=== PATIENT | female | born 1945 | race Caucasian/White ===

== ENCOUNTER 2016-09-16 10:50 | Day surgery (SDC) | payer MEDICARE, BC ==
[2016-09-14 16:20] VITALS: BMI 28.7
[~2016-09-16 10:50] MED LIST: ACETAMINOPHEN TAB 500 MG TAB PO ONE; DEXAMETHASONE SOD PHOSPHATE 10 MG/ML 1 ML VIAL IV ONE; LACTATED RINGERS 1,000 ML IV SCH; MELOXICAM 7.5 MG TAB PO ONE; MIDAZOLAM 2 MG/2 ML VIAL IV PRN; ONDANSETRON 4 MG/2 ML VIAL IVP ONE; SCOPOLAMINE 1.5MG/72HR PATCH TRANSDERM ONE; ceFAZolin 2 GM in SODIUM CHLORIDE 0.9% 100 ML IVPB ONE
[2016-09-16] MEDS ORDERED: LIDOCAINE 1% 20 ML VIAL (10MG/ML) FOR IV START INTRADERMA ONE (12:30)
[2016-09-16] MEDS ORDERED: LIDOCAINE 2%-EPI 1:100,000 20 ML VIAL ONE (13:37)
[2016-09-16] MEDS ORDERED: fentaNYL (PF) 50 MCG/ML 2 ML AMP ONE (13:37)
[2016-09-16] MEDS ORDERED: ROPIVACAINE 5 MG/ML 30 ML VIAL ONE (13:37)
[2016-09-16] MEDS ORDERED: LIDOCAINE 1% INJ 10MG/ML (20 ML MDV) ONE (13:37)
[2016-09-16] MEDS ORDERED: ePHEDrine 50 MG/ML 1 ML AMP ONE (13:37)
[2016-09-16] MEDS ORDERED: PROPOFOL 10 MG/ML 20 ML VIAL IV ONE (13:37)
[2016-09-16] MEDS ORDERED: SUCCINYLCHOLINE CHLORIDE 100 MG/5 ML SYR IV ONE (13:37)
[2016-09-16] MEDS ORDERED: ceFAZolin 1,000 MG in SODIUM CHLORIDE 0.9% 1,000 ML IRRIGATION ONE (14:56)
[2016-09-16 15:24] VITALS: TEMP 97.6
--- NOTE | 2016-09-16 15:24 | P.OP ---
Date of Procedure: 09/16/16 Procedure(s) Performed: PREOPERATIVE DIAGNOSES: 1. Left shoulder subscapularis tear POSTOPERATIVE DIAGNOSES: 1. Left shoulder subscapularis tear 2. Osteoarthritis glenohumeral joint, grade 3 to 4 PROCEDURES PERFORMED: 1. Left shoulder open subscapularis repair ANESTHESIA: Gen. ASSISTANT WOMENS VOLLEYBALL COACH: Kimberly Farley PA-C (assistance with exposure, hemostasis, retraction, fixation, closure, dressing, splint) COMPLICATIONS: None ESTIMATED BLOOD LOSS: 30 mL. DISPOSITION: To post-anesthesia care unit INDICATIONS: Mrs. Zheng is a 71-year-old female who sustained a subscapularis tear approximately 2 weeks ago during a fall. The patient, after counseling on both conservative and surgical options, chooses to proceed with open subscapularis repair. I have discussed this surgery in detail, as well as the potential risks and complications including, but not limited to: Bleeding, infection, scarring, discomfort, blood vessel and/or nerve damage, need for further surgery, stiffness, rerupture, persistence or worsening of problems, blood clot, pulmonary embolism, anesthesia risks, , loss of use of the extremity, and other risks. Patient is aware these risks and wishes to proceed with surgery. The consent form has been signed. PROCEDURE: After appropriate consent was obtained, the patient was taken to the operating room placed in the supine position. Anesthesia was initiated, and after confirmation of adequate anesthesia, the patient was carefully positioned. Care was taken to make sure that all pressure points were adequately padded. Patient was placed into the beachchair position with approximately 30 of elevation of the head of the bed. Head was secured with Coban. Prepping and draping were completed in the usual aseptic fashion using ChloraPrep. Timeout was called, confirming patient identity, side, procedure, and administration of antibiotics. Deltopectoral incision was created from just at the coracoid process down to near the deltoid insertion for total length of approximately 4.5 inches. Incision was deepened down through skin into subcu tissues and down to muscular fascia. Meticulous hemostasis was accomplished using cautery. Muscular fascia was encountered of the deltoid and this was followed medially until the deltopectoral interval was located. Deltopectoral interval was exposed and the vein was carefully retracted medially along with the pectoralis. Deltoid was mobilized on its deep surface using finger dissection and the area just adjacent to the strap muscles was incised for exposure of the subscapularis tendon. The subscapularis tendon had completely detached from its bony insertion just medial to the bicipital groove. The biceps tendon was located and noted to be completely anatomically oriented and was left undisturbed for the entire case. The subscapularis tendon was tagged with 2 #2 Ethibond sutures for control of the tendon. The supraspinatus and infraspinatus tendons were noted to be completely intact and normal. The area just lateral to the articular surface at the subscapularis footprint was prepared by removing organizing soft tissue in this region down to bone and noting that the bone quality was somewhat poor in this individual. The area was very lightly debrided to encourage a healing response once the tendon had been repaired. The subscapularis tendon was able to be easily mobilized to an anatomic location. 2 double loaded 5.5 mm Bio- Corkscrew suture anchors were deployed into the subscapularis footprint with care to place these anchors in as good bone as possible. Once the anchors were placed, the sutures were then brought through the subscapularis tendon in appropriate locations. A combination of horizontal mattress as well as modified Odilon-Grant sutures were placed. Tension was held on the tag sutures while the anchor sutures were tied down securely. Further reinforcement of the repair was performed using 0 Vicryl sutures in the medial aspect of the soft tissue just adjacent to the bicipital groove. The shoulder was then taken through range of motion gently observing the repair and noting that the repair was very stable. Thorough irrigation was performed using normal saline; hemostasis was obtained using electrocautery. Closure was performed of the deltopectoral interval with loose 0 Vicryl sutures to lightly appose the muscles. 2 layer subcu cutaneous closure was performed followed by skin closure with 3-0 Monocryl suture and cyanoacrylate top dressing. Final sterile dressing was applied and held into position. Sling was then applied. Patient tolerated the procedure well and taken to recovery room in stable condition. Sponge and needle counts were correct.
[2016-09-16] MEDS: HYDROmorphone 1 MG/ML 1 ML SYRINGE IVP PRN ×2 (15:29→15:50)
[2016-09-16 16:31] VITALS: BP 156/87; PULSE 69; RESP 16
== END 2016-09-16 18:17 | disposition home or self-care (01) ==
LOC: OR 10:50
PROVIDERS: ATTEND Orthopaedic Surgery
DX: S46.012A Strain of muscle(s) and tendon(s) of the rotator cuff of left shoulder, initial encounter (principal); W06.XXXA Fall from bed, initial encounter; I10 Essential (primary) hypertension; Z87.891 Personal history of nicotine dependence; Z79.891 Long term (current) use of opiate analgesic; Z79.899 Other long term (current) drug therapy
CPT/HCPCS: 64415; 20999; C1713; J2250; J1100; J2405; J0690; J2001; J3010; J1170; J2795; J0330; J2704

== ENCOUNTER → 2018-12-26 | Outpatient (CLI) | payer MEDICARE, BC ==
[2018-12-26 15:51] LABS: HCT 42.8 % (34.0-46.0); HGB 14.1 gm/dL (11.4-16.0); MCH 31.2 pg (25.0-35.0); MCV 94.6 fL (80.0-100.0); Mean Platelet Volume 6.9; Platelet Count 266 k/uL (150-450); RBC 4.53 m/uL (3.80-5.40); RDW 12.8 % (11.5-15.5); WBC 7.9 k/uL (3.8-10.6)
[2018-12-26 17:10] LABS: Appearance,BF Hazy; Color,BF Yellow; Nucleated Cells, Body Fluid 29 /uL; RBC, Body Fluid 15 /uL
[2018-12-26 17:19] LABS: Mononuclear WBC,Body Fluid 100 %; Total Cells Counted,Body Fluid 20
[2018-12-26 22:27] LABS: Erythrocyte Sedimentation Rate 8 mm/hr (0-20)
[2018-12-27 00:41] LABS: Rheumatoid Factor 10 IU/mL (0-15)
[2018-12-27 00:42] LABS: Streptolysin O Ab(ASO) 65 IU/mL (0-200)
[2018-12-27 01:30] LABS: C Reactive Protein <0.4 mg/dL (0.0-0.8)
[2018-12-27 12:48] LABS: HLA B27 NEGATIVE
[2018-12-28 12:00] LABS: Lyme IgG/IgM 0.08 Index; Lyme IgG/IgM Interp NEGATIVE (NEGATIVE)
== END | disposition home or self-care (01) ==
LOC: LABWHC1 15:04
PROVIDERS: ATTEND Orthopaedic Surgery
DX: M25.571 Pain in right ankle and joints of right foot (principal); M19.071 Primary osteoarthritis, right ankle and foot; M25.471 Effusion, right ankle
CPT/HCPCS: 36415; 84443; 85027; 85652; 86038; 86060; 86140; 86431; 86618; 86812; 89050; 89060

== ENCOUNTER 2021-04-16 15:31 | Emergency (ER) | payer MEDICARE, BC ==
[2021-04-16] MEDS ORDERED: CASIRIVIMAB (REGN10933) (EUA) 600 MG, IMDEVIMAB (REGN10987) (EUA) 600 MG in SODIUM CHLO... IVPB ONE (17:30)
--- NOTE | 2021-04-16 17:51 | ED ---
General Adult HPI - General Chief complaint: Upper Respiratory Infection Stated complaint: Covid+/antibodies Time Seen by Provider: 04/16/21 16:49 Source: patient Mode of arrival: ambulatory Limitations: no limitations - History of Present Illness Initial comments: 76-year-old female patient presents to the emergency department today for evaluation of dry cough for the last 3 days. States she was exposed to a friend who tested positive for COVID. Denies any fever or chills. Denies nausea or vomiting. Denies loss of taste or smell. States she was vaccinated with last dose in July. 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 She denies any shortness of breath or chest pain. Denies nausea, vomiting, or diarrhea. Patient denies any recent rash, abdominal pain, constipation, back pain, numbness, tingling, dizziness, weakness, hematuria, dysuria, urinary urgency, urinary frequency, headache, visual changes, or any other complaints. - Related Data Home Medications Medication Instructions Recorded Confirmed Acetaminophen [Tylenol Arthritis] 1,300 mg PO ONCE PRN 04/16/21 04/16/21 Atenolol [Tenormin] 50 mg PO DAILY 04/16/21 04/16/21 Diphenhydra/Phenyleph/Acetamin 1 pack PO ONCE PRN 04/16/21 04/16/21 [Theraflu Nt Severe Cld-Cgh Pkt] Allergies Allergy/AdvReac Type Severity Reaction Status Date / Time No Known Allergies Allergy Verified 04/16/21 18:03 Review of Systems ROS Statement: Those systems with pertinent positive or pertinent negative responses have been documented in the HPI. ROS Other: All systems not noted in ROS Statement are negative. Past Medical History Past Medical History: Cancer, Hypertension Additional Past Medical History / Comment(s): hx breast ca, radiation, left arm in sling History of Any Multi-Drug Resistant Organisms: None Reported Past Surgical History: Breast Surgery, Hysterectomy, Joint Replacement, Ort hopedic Surgery Additional Past Surgical History / Comment(s): rt knee replacement, left lumpectomy, upper eyelid lift, holli hands cyst removed Past Anesthesia/Blood Transfusion Reactions: No Reported Reaction Past Psychological History: No Psychological Hx Reported Smoking Status: Former smoker Past Alcohol Use History: Occasional Past Drug Use History: None Reported - Past Family History Sister(s) Family Medical History: Cancer Additional Family Medical History / Comment(s): breast Son(s) Family Medical History: Cancer Additional Family Medical History / Comment(s): prostate General Exam Limitations: no limitations General appearance: alert, in no apparent distress, other (This is a well- developed, well-nourished elderly female patient in no acute distress.) ENT exam: Present: normal exam, normal oropharynx, mucous membranes moist Respiratory exam: Present: normal lung sounds bilaterally. Absent: respiratory distress, wheezes, rales, rhonchi, stridor Cardiovascular Exam: Present: regular rate, normal rhythm, normal heart sounds. Absent: systolic murmur, diastolic murmur, rubs, gallop, clicks GI/Abdominal exam: Present: soft, normal bowel sounds. Absent: distended, tenderness, guarding, rebound, rigid Neurological exam: Present: alert, oriented X3, CN II-XII intact Psychiatric exam: Present: normal affect, normal mood Skin exam: Present: warm, dry, intact, normal color. Absent: rash Course Vital Signs 04/16/21 04/16/21 04/16/21 16:39 17:00 17:15 Temperature 98.5 F 98.3 F Pulse Rate 69 Pulse Rate [ 59 L 59 L Pulse Oximetery ] Respiratory 20 16 16 Rate Blood Pressure 116/80 Blood Pressure 205/90 194/76 [Right Arm] O2 Sat by Pulse 96 99 99 Oximetry 04/16/21 04/16/21 18:20 19:12 Temperature Pulse Rate Pulse Rate [ 60 66 Pulse Oximetery ] Respiratory 18 18 Rate Blood Pressure Blood Pressure 188/81 171/83 [Right Arm] O2 Sat by Pulse 99 97 Oximetry Medical Decision Making - Medical Decision Making 76-year-old female patient presented for evaluation of dry cough for the last 2 days. She did have positive outpatient COVID-19 test. Copy was placed on the chart. She did receive monoclonal antibody infusion tolerated it well. She'll be discharged follow up with her primary care physician for recheck in 1-2 days. Return parameters were discussed in detail. She verbalizes understanding and agrees with this plan. My attending is Dr. Cervantes. Disposition Clinical Impression: COVID-19 Disposition: HOME SELF-CARE Condition: Good Instructions (If sedation given, give patient instructions): Coronavirus Disease 2019 (COVID-19) Additional Instructions: Tips to help you feel better: -Maintain adequate fluid intake - especially water. -Rest, you are healing your body will require extra sleep. -Eat even if you do not feel like it - broth, jello, toast are fine if you cannot eat full meals. -Take tylenol and motrin alternating (if you have no allergies or have not been instructed to avoid these medications) to help with body aches and fevers. -Obtain over the counter vitamin C, zinc, and vitamin D3. -Take medications as prescribed. Follow-up with your primary care physician for recheck in 1-2 days. Return for any new, worsening, or concerning symptoms. Is patient prescribed a controlled substance at d/c from ED?: No Referrals: Kavitha Guajardo MD [Primary Care Provider] - 1-2 days
[2021-04-16] MEDS ORDERED: SODIUM CHLORIDE 0.9% 50 ML IVPB ONE (18:00)
[2021-04-16 18:03] VITALS: TEMP 98.3
[2021-04-16 18:58] VITALS: RESP 18
[2021-04-16 19:12] VITALS: BP 171/83; PULSE 66
== END 2021-04-16 17:30 | disposition home or self-care (01) ==
LOC: EC 15:31
DX: U07.1 COVID-19 (principal); I10 Essential (primary) hypertension; Z85.3 Personal history of malignant neoplasm of breast; Z90.710 Acquired absence of both cervix and uterus; Z96.651 Presence of right artificial knee joint; Z87.891 Personal history of nicotine dependence
CPT/HCPCS: 99283; Q0244

== ENCOUNTER → 2022-08-24 | Outpatient (CLI) | payer MEDICARE, BC ==
--- NOTE | 2022-08-24 12:17 | BD ---
EXAMINATION TYPE: Axial Bone Density DATE OF EXAM: 08/24/2022 CLINICAL HISTORY: 77 years old Female. ICD-10 CODE: Z78.0 MENOPAUSAL STATE Height: 5 ft 4 in Weight: 181 FRAX RISK QUESTIONS: Alcohol (3 or more units per day): no Family History (Parent hip fracture): no Glucocorticoids (More than 3mos): no (Ex: prednisone, prednisolone, methylprednisolone, dexamethasone, and hydrocortisone). History of Fracture in Adulthood: yes Secondary Osteoporosis: 1. Type 1 Diabetes: no 2. Hyperthyroidism: no 3. Menopause before 45: no 4. Malnutrition: no 5. Chronic liver disease: no Rheumatoid Arthritis: no Current Tobacco Use: no RISK FACTORS HISTORY OF: Surgery to Spine/Hip(right/left)/Wrist (right/left): no Family History of Osteoporosis: no Active: yes Diet low in dairy products/other sources of calcium: no Postmenopausal woman: yes Take estrogen and/or progesterone medications: none now Lost more than 2 inches in height since high school: yes Frequent falls: no Poor Health: good Hyperparathyroidism: no Adrenal Insufficiency: no MEDICATIONS: Additional Medications: atenolol, muscle relaxer as needed, Additional History: EXAM MEASUREMENTS: Bone mineral densitometry was performed using the [employer] System. Bone mineral density as measured about the Lumbar spine is: ----- L1-L4(G/cm2): 1.555 T Score Values are as follows: ----- L1: 2.8 ----- L2: 3.2 ----- L3: 3.0 ----- L4: 3.3 ----- L1-L4: 3.1 Z Score Values are as follows: ----- L1: 4.0 ----- L2: 4.4 ----- L3: 4.2 ----- L4: 4.5 ----- L1-L4: 4.3 baseline Bone mineral density about the R hip (g/cm2): 1.110 Bone mineral density about the L hip (g/cm2): 1.186 T Score values are as follows: -----R Neck: 0.5 -----L Neck: 1.1 -----R Total: 0.7 -----L Total: 1.2 Z Score values are as follows: -----R Neck: 2.1 -----L Neck: 2.6 -----R Total: 2.1 -----L Total: 2.6 baseline FRAX%s: The graph provided illustrates a 10.1% chance for a major osteoporotic fx and a 0.6% chance f or the hips probability for fx in 10 years time. IMPRESSION: Normal (Values between +1 and -1 indicate normal bone mass). Consider repeating this study in 5 year s or sooner if there is some new clinical indication. NOTE: T-SCORE=SD OF THE YOUNG ADULT MEAN.
--- NOTE | 2022-08-29 08:10 | MM ---
Reason for Exam: Screening (asymptomatic). Last mammogram was performed 1 year(s) and 5 month(s) ago. Patient History: Menarche at age 13. First Full-Term at age 20. Left ovary removed at age 52. Right ovary removed at age 52. Hysterectomy at age 52. Breast cancer, left, age 64. 2010, Lumpectomy on the Left side. 2010, Radiation Therapy on the left side. Sister had breast cancer, age 40. Prior Study Comparison: 07/02/2018 Bilateral Screening Mammogram, [facility]. 03/24/2021 Bilateral Screening Mammogram, [facility]. Tissue Density: There are scattered fibroglandular densities. Findings: Analyzed By CAD. Diminished size of the left breast with distortion along with surgical clips and dystrophic calcifications in the upper outer aspect posteriorly are redemonstrated consistent with posttreatment change. Occasional tiny benign-appearing round calcification bilaterally is redemonstrated. Benign-appearing right axillary lymph nodes are again seen. There is no suspicious new group of microcalcifications or new suspicious mass in either breast. Overall Assessment: Benign, BI-RAD 2 Management: Screening Mammogram of both breasts in 1 year. A clinical breast exam by your physician is recommended on an annual basis and results should be correlated with mammographic findings. Electronically signed and approved by: Stewart Schmidt M.D.
== END | disposition home or self-care (01) ==
LOC: RADMAMWWP 09:49
PROVIDERS: ATTEND Family Medicine
DX: Z12.31 Encounter for screening mammogram for malignant neoplasm of breast (principal); Z80.3 Family history of malignant neoplasm of breast; Z78.0 Asymptomatic menopausal state
CPT/HCPCS: 77063; 77067; 77080

== ENCOUNTER → 2023-06-13 | Outpatient (CLI) | payer MEDICARE, BC ==
[2023-06-13 15:04] LABS: INR 0.8 (<1.2); Partial Thromboplastin Time 22.7 sec (22.0-30.0); Prothrombin Time 9.5 sec (10.0-12.5)
[2023-06-13 18:58] LABS: ALT 11 U/L (8-44); AST 16 U/L (13-35); Albumin 3.9 g/dL (3.8-4.9); Albumin/Globulin Ratio 1.56 Ratio (1.60-3.17); Alkaline Phosphatase 101 U/L (41-126); BUN/Creat Ratio 20.43 Ratio (12.00-20.00); Blood Urea Nitrogen 14.3 mg/dL (9.0-27.0); Calcium 9.9 mg/dL (8.7-10.3); Carbon Dioxide 27.4 mmol/L (21.6-31.8); Chloride 98 mmol/L (96-109); Globulin 2.5 g/dL (1.6-3.3); Glucose 100 mg/dL (70-110); Potassium 4.4 mmol/L (3.5-5.5); Sodium 137 mmol/L (135-145); Total Bilirubin 0.4 mg/dL (0.3-1.2); Total Protein 6.4 g/dL (6.2-8.2)
[2023-06-13 19:24] LABS: HCT 41.9 % (37.2-46.3); HGB 13.7 g/dL (12.0-15.0); MCH 31.5 pg (27.0-32.0); MCHC 32.7 g/dL (32.0-37.0); MCV 96.3 FL (80.0-97.0); Mean Platelet Volume 10.7 FL (9.5-12.2); NRBC Per 100 WBC 0 X 10*3/uL (0.00-0.01); Platelet Count 232 X 10*3/uL (140-440); RBC 4.35 X 10*6/uL (4.10-5.20); RDW 12.2 % (11.5-14.5); WBC 9.67 X 10*3/uL (4.50-10.00)
== END | disposition home or self-care (01) ==
LOC: LABPAT 13:51
PROVIDERS: ATTEND Orthopaedic Surgery
DX: Z01.812 Encounter for preprocedural laboratory examination (principal); Z22.322 Carrier or suspected carrier of Methicillin resistant Staphylococcus aureus; E11.9 Type 2 diabetes mellitus without complications; M17.11 Unilateral primary osteoarthritis, right knee
CPT/HCPCS: 80053; 83036; 85027; 85610; 85730; 86850; 86900; 86901; 87070; 93005

== ENCOUNTER 2023-06-23 05:37 | Day surgery (SDC) | payer MEDICARE, BC ==
[2023-06-21 14:18] VITALS: BMI 27.8
[2023-06-23] MEDS ORDERED: LIDOCAINE 1% (10MG/ML) FOR IV START INTRADERMA PRN (05:42)
[2023-06-23] MEDS: LACTATED RINGERS 1,000 ML IV SCH (05:52)
[2023-06-23] MEDS: oxyCODONE ER 10 MG TAB.ER.12H PO PRN (05:53)
[2023-06-23] MEDS: ACETAMINOPHEN TAB 500 MG TAB PO PRN (05:53)
[2023-06-23] MEDS: KETOROLAC 15 MG/ML 1 ML VIAL IVP PRN (05:53)
[2023-06-23] MEDS: DEXAMETHASONE SOD PHOSPHATE 10 MG/ML 1 ML VIAL IV PRN (05:53)
[2023-06-23] MEDS: FAMOTIDINE 20 MG/2 ML VIAL IVP PRN (05:53)
[2023-06-23] MEDS: DOCUSATE 100 MG CAP PO PRN (05:53)
[2023-06-23] MEDS: ONDANSETRON 4 MG/2 ML VIAL IVP PRN (05:53)
[2023-06-23] MEDS ORDERED: TRANEXAMIC 1,000 MG/100ML-NACL 1,000 MG in SALINE 1 100ML.BAG IVPB PRN (06:00)
[2023-06-23] MEDS ORDERED: TRANEXAMIC 1,000 MG/100ML-NACL 1,000 MG in SALINE 1 100ML.BAG IV PRN (06:00)
[2023-06-23] MEDS: MIDAZOLAM 2 MG/2 ML VIAL IVP ONE (06:41)
[2023-06-23] MEDS ORDERED: METOCLOPRAMIDE 5 MG/ML 2 ML VIAL IVP PRN (07:00)
[2023-06-23] MEDS ORDERED: MIDAZOLAM 2 MG/2 ML VIAL IV PRN (07:00)
[2023-06-23] MEDS ORDERED: fentaNYL (PF) 50 MCG/ML 2 ML AMP IVP PRN (07:00)
[2023-06-23] MEDS ORDERED: SUCCINYLCHOLINE CHLORIDE 200 MG/10 ML VIAL IV ONE (07:03)
[2023-06-23] MEDS ORDERED: ePHEDrine 50 MG/ML 1 ML VIAL ONE (07:03)
[2023-06-23] MEDS ORDERED: fentaNYL (PF) 50 MCG/ML 2 ML AMP ONE (07:03)
[2023-06-23] MEDS ORDERED: NEOSTIGMINE 1 MG/ML 10 ML VIAL ONE (07:03)
[2023-06-23] MEDS ORDERED: LIDOCAINE 1% INJ 10MG/ML (20 ML MDV) ONE (07:03)
[2023-06-23] MEDS ORDERED: TRANEXAMIC 1,000 MG/100ML-NACL PREMIX BAG ONE (07:03)
[2023-06-23] MEDS ORDERED: ROPIVACAINE 5 MG/ML 30 ML VIAL ONE (07:03)
[2023-06-23] MEDS ORDERED: GLYCOPYRROLATE 0.2 MG/ML 2 ML VIAL ONE (07:03)
[2023-06-23] MEDS ORDERED: KETAMINE HCL IN 0.9 % NACL 50 MG/5 ML SYRINGE ONE (07:03)
[2023-06-23] MEDS ORDERED: MIDAZOLAM 2 MG/2 ML VIAL ONE (07:03)
[2023-06-23] MEDS ORDERED: PROPOFOL 10 MG/ML 20 ML VIAL IV ONE (07:03)
[2023-06-23] MEDS ORDERED: DEXAMETHASONE SOD PHOSPHATE 4 MG/ML 1 ML VIAL ONE (07:03)
[2023-06-23] MEDS ORDERED: ROCURONIUM 10 MG/ML (5 ML VIAL) IV ONE (07:03)
[2023-06-23] MEDS: ROPIVACAINE/EPI/CLONIDINE/KET 50 ML SYRINGE MISCELLANE PRN (07:49)
--- NOTE | 2023-06-23 08:21 | P.ANPRN ---
Procedure Note - Anesthesia - Nerve Block Performed Left Arjun Single Time Out Performed: Yes Date of Procedure: 06/23/23 Procedure Start Time: 06:40 Procedure Stop Time: 06:50 Location of Patient: PreOp Indication: Acute Post-Operative Pain, Analgesia, Requested by Surgeon Sedation Type: Sedate with meaningful contact maintained Preparation: Sterile Prep Position: Supine Catheter: None Needle Types: Pajunk Needle Gauge: 21 Ultrasound used to visualize needle placement: Yes Ultrasound used to observe medication spread: Yes Injectate: 0.5% Ropivacaine (see comment for volume) (Ropiv 25ml+dexamethason 4mg) Blood Aspirated: No Pain Paresthesia on Injection Noted: No Resistance on Injection: Normal Image Stored and Saved: Yes Events: Uneventful and Well Tolerated
[2023-06-23] MEDS: LACTATED RINGERS 1,000 ML IV ONE (08:54)
--- NOTE | 2023-06-23 09:29 | P.OP ---
Date of Procedure: 06/23/23 Preoperative Diagnosis: 1. Severe left hip osteoarthritis Postoperative Diagnosis: Same Procedure(s) Performed: Left direct anterior total hip arthroplasty Implants: 1. Jaki Trident II Acetabular Cup, Size #50 2. [place] Insignia Size # 2 Femoral Stem, Standard Offset 3. Dual Mobility OD 38 mm, ID 22.2 mm, +0 neck Anesthesia: GETA, regional Surgeon: eDyvi Mann Day Care Supervisor #1: Kimberly Farley Estimated Blood Loss (ml): 200 IV fluids (ml): 800 Pathology: none sent Condition: stable Disposition: PACU Indications for Procedure: I had a long discussion with the patient in the office on the potential risks and complications of an elective total hip replacement through a direct anterior approach. Risks discussed include, but are certainly not limited to, risks from anesthesia, superficial infection requiring local wound care or antibiotics, deep seven-prosthetic joint infection and the treatment required to eradicate infection, intraoperative fracture, postoperative periprosthetic fracture, damage to local blood vessels or nerves particularly the lateral femoral cutaneous nerve, delayed wound healing requiring local wound care or possibly surgical debridement, hip dislocation, leg length discrepancy, soft tissue irritation around the total hip implant such as iliopsoas tendinitis or trochanteric bursitis, wear and osteolysis from the implants, squeaking or audible noises, groin pain, thigh pain, heterotopic ossification, stiffness, aseptic loosening of the implants, dissatisfaction with surgical outcome, need for revision surgery, DVT, PE, swelling of the operative extremity, acute coronary event, stroke, failure to thrive, and possibly loss of life or limb. The patient understands that while these are the most common complications after an elective hip replacement there are certainly other less common complications possible. They were given ample time to ask questions regarding the potential complications of a hip replacement. Following our discussion the patient pr ovided their verbal and written consent to go forward with an elective total hip replacement. Operative Findings: The patient had excellent bone quality on the femoral side with thick cortices and excellent cancellous sleeve of bone so I elected to use cementless fixation with a collared stem. A dual mobility articulation was used given the degenerative changes in the lumbar spine. Description of Procedure: The patient was identified in the preoperative holding area and the correct hip was marked with my initials. I reviewed the procedure and consent with the patient. All of their questions were answered. The patient was then brought back into the operating room by anesthesia. While on the [facility] anesthesia was administered by the anesthesia team. Preoperative antibiotics and tranexamic acid were also given. After the patient was under anesthesia I examined their ankles to determine their preoperative leg length discrepancy. The skin over the anterior aspect of the hip was shaved to remove hair over the site of planned incision. Both feet and ankles were padded with webril and boots for the [place] were applied. The patient was then carefully transferred onto the [place] table. A perineal post was immediately placed. The arms were placed on arm holders and were well-padded. Both boots were secured to the spars on the [place] table. The patient was positioned so that the pelvis was centered over the post. Nonsterile drapes were applied. A timeout was performed identifying the correct patient, operative extremity, and procedure. At this point fluoroscopy was brought in to take preoperative images of the pelvis and operative hip. Using the standing AP pelvis from the office as a template, a comparable image was obtained with fluoroscopy. A metallic bar was used to create a bi-ischial line for use as a reference to leg length adjustments during the procedure. Global offset was also measured on both the operative and nonoperative leg. Fluoroscopy was then brought out and a pre-scrub using a chlorhexidine scrub brush was performed. The operative limb was then prepped and draped in the standard sterile fashion. An anterior longitudinal incision was made lateral and distal to the ASIS. The skin and subcutaneous tissues were incised sharply. The underlying tensor fascia was identified and incised in its midportion. The fascia was dissected free from the underlying muscle and the muscle belly was retracted. A blunt tipped cobra retractor was placed over the superior neck under the muscle fibers of the gluteus minimus. The deep enveloping fascia of the tensor was incised. The anterior leash of vessels were then identified and cauterized. The fascia between the rectus and the capsule was then incised and the pre-capsular fat was excised. A second Cobra was placed inferior to the neck. The interval between the rectus and iliocapsularis and the hip capsule was developed and a retractor was placed carefully over the anterior rim of the acetabulum. A T-shaped anterior capsulotomy was performed. The superior capsular leaflet was left in place in the inferior capsular flap was excised. The Cobra retractors were placed intracapsularly. We then made a femoral neck osteotomy according to preoperative and intraoperative templating and confirmed the level of the osteotomy using fluoroscopic imaging. The femoral head was removed, passed off to the back table, and sized. The superior capsular flap was excised. Retractors were placed circumferentially exposing the acetabulum. We then circumferentially debrided the acetabulum free of labrum and osteophytes. The pulvinar was removed to fully visualize the cotyloid fossa. We then sequentially reamed to achieve peripheral fit and excellent bleeding subchondral bone. The socket was thoroughly irrigated. The acetabular component was impacted into the appropriate position using fluoroscopy to guide version, inclination, and depth of insertion taking care to have a comparable image of the AP pelvis to the standing image taken in the office. An excellent press-fit was achieved and final position was confirmed using fluoroscopy. The press fit was augmented with bony cancellus dome screws. The liner was then impacted into the socket. Attention was then turned to the femur. The remnant dorsal lateral capsule was excised. The short external rotators were visible and protected. A bone hook was used to confirm appropriate translation of the trochanter away from the acetabulum. The leg was then extended and adducted and the bone hook was used to elevate the femur for broaching. A box osteotome and blunt tipped canal sound was then utilized to gain access to the femoral canal. We then sequentially broached the femur in appropriate anteversion until excellent torsional stability was achieved. The neck cut was brought flush to the trial broach with a calcar planar. A trial neck and head were then placed onto the broach and the hip was atraumatically reduced under direct visualization. External rotation to 90 was performed to assess stability. Fluoroscopy was brought in. An AP and lateral fluoroscopic image of the proximal femur was obtained to assess position and fill of the trial broach. An AP of the pelvis was then obtained and matched to the preoperative image taken. A bi-ischial bar was then placed and measurements were taken to assess changes in length and offset. The hip was then carefully dislocated, the proximal femur was exposed, and the trial implants were removed. The wound and proximal femur was thoroughly irrigated using sterile saline and pulsatile lavage. The final femoral implant was dispensed and gently tapped into place generating an excellent press-fit. The trunnion was cleansed and the final head was tapped into place to engage the Cordero taper. The acetabulum was irrigated and visualized to be free of debris. The hip was carefully reduced. Stability was checked clinically with external rotation to 90 and there was no evidence of instability. Final fluoroscopic images were taken. The wound was then thoroughly irrigated and soaked with a dilute Betadine rinse for 3 minutes. 3 L of sterile saline was irrigated through the wound using pulsatile lavage. Local anesthetic cocktail was injected into the soft tissues around the surgical field. The wound was then closed in layers. A sterile dressing was placed over the surgical incision. The drapes were taken down and the patient was carefully transferred off of the [place] table. Following removal of the boots the leg lengths felt acceptable. The patient was then taken to recovery room having tolerated the procedure well. Kimberly Farley PA-C was required as a skilled multimedia assistant for patient positioning, exposure, retraction, placement of implants, closure of wound, application of dressing, and transfer of patient operative the operating room table. PLAN: The patient can weight-bear as tolerated on the operative extremity. DVT prophylaxis with aspirin 81 mg twice a day based on preoperative risk stratification. Physical therapy for gait training. Leave surgical dressing in place. Internal medicine for perioperative medical management.
[2023-06-23] MEDS ORDERED: NALOXONE 0.4 MG/ML 1 ML VIAL IV PRN (09:54)
[2023-06-23] MEDS ORDERED: MAGNESIUM HYDROXIDE 2,400 MG/30 ML CUP PO PRN (09:54)
[2023-06-23] MEDS ORDERED: HYDROmorphone 0.5 MG/0.5 ML SYRINGE IVP PRN ×3 (09:54)
[2023-06-23] MEDS: HYDROmorphone 0.5 MG/0.5 ML SYRINGE IVP PRN (10:02)
--- NOTE | 2023-06-23 11:07 | FL ---
EXAMINATION TYPE: FL guidance operating room, XR Hip Limited LT DATE OF EXAM: 06/23/2023 Comparison: Clinical History: 78-year-old female TOTAL ANT HIP LEFT Findings: Lt anterior hip with Braaksma. 40 sec fluoro time. 2.4215 Gycm2 DAP. 6 images. LC Impression: Intraoperative fluoroscopy as above.
[2023-06-23] MEDS ORDERED: traMADol 50 MG TAB PO PRN (15:10)
[2023-06-23] MEDS: HYDROcodone/APAP 5-325MG 1 EACH TAB PO PRN (17:07)
[2023-06-23] MEDS: SENNOSIDES-DOCUSATE SODIUM 1 EACH TAB PO SCH (20:41)
[2023-06-23] MEDS: ASPIRIN 81 MG PO SCH (20:42)
[2023-06-24] MEDS: HYDROcodone/APAP 5-325MG 1 EACH TAB PO PRN (06:55)
[2023-06-24] MEDS: atenoloL 50 MG TAB PO SCH (08:07)
[2023-06-24] MEDS: FAMOTIDINE 20 MG TAB PO SCH (08:07)
[2023-06-24] MEDS: ESCITALOPRAM 5 MG TAB PO SCH (08:07)
[2023-06-24 08:32] VITALS: BP 125/74; PULSE 65; RESP 17; TEMP 97.8
--- NOTE | 2023-06-24 08:33 | P.DS ---
Providers Expected date of discharge: 06/24/23 Attending physician: Deyvi Mann Consults: 06/23/23 09:59 Consult Physician Urgent Consulting Provider: Kavitha Guajardo Consult Reason/Comments: Medical management Do you want consulting provider notified?: Yes Primary care physician: Kavitha Guajardo - Discharge Diagnosis(es) (1) Primary localized osteoarthritis of left hip Current Visit: Yes Status: Acute (2) Status post total replacement of left hip Current Visit: Yes Status: Acute Hospital Course: This is a 78-year-old female with known history of degenerative arthritis of the left hip. The patient presents for evaluation. After discussion and consideration patient elects to proceed with total hip arthroplasty with direct anterior approach. The patient is seen preoperatively by primary care physician and cleared for surgery. Patient is admitted to [facility] on 06/23/2023 for total hip arthroplasty with direct anterior approach. The procedure is performed without complication or sequelae. The patient is doing well postoperatively. Labs and vital signs are stable on day of discharge. On day of discharge patient's hip incision is healing well. There is minimal erythema. There is ecchymosis surrounding the incisional area. There is no drainage noted on the dressing at this time. There is minimal soft tissue swelling to the hip and thigh. Patient has full foot and ankle motion without difficulty or pain. Neurovascular status to the lower extremity is intact. Patient is discharged to home in good condition. Please see med rec for accurate list of home medications. Patient Condition at Discharge: Good Plan - Discharge Summary Discharge Rx Participant: Yes New Discharge Prescriptions: New Aspirin [Adult Low Dose Aspirin EC] 81 mg PO BID #1 tab HYDROcodone/APAP 5-325MG [Kite 5-325] 1 - 2 tab PO Q6HR PRN #32 tab PRN Reason: Pain Sennosides-Docusate Sodium [Senokot-S] 1 tab PO BID #60 tablet Ondansetron Odt [Zofran Odt] 4 mg PO Q8HR PRN #14 tab PRN Reason: Nausea Omeprazole 20 mg PO DAILY #30 tab Diclofenac Sodium [Voltaren] 75 mg PO BID #60 tab No Action traMADol HCL 50 mg PO DIRECTED PRN PRN Reason: Pain atenoloL [Tenormin] 50 mg PO QAM Escitalopram [Lexapro] 5 mg PO QAM Discharge Medication List atenoloL [Tenormin] 50 mg PO QAM 04/16/21 [History] Escitalopram [Lexapro] 5 mg PO QAM 06/21/23 [History] traMADol HCL 50 mg PO DIRECTED PRN 06/21/23 [History] Aspirin [Adult Low Dose Aspirin EC] 81 mg PO BID #1 tab 06/23/23 [Rx] Diclofenac Sodium [Voltaren] 75 mg PO BID #60 tab 06/23/23 [Rx] HYDROcodone/APAP 5-325MG [Kite 5-325] 1 - 2 tab PO Q6HR PRN #32 tab 06/23/23 [Rx] Omeprazole 20 mg PO DAILY #30 tab 06/23/23 [Rx] Ondansetron Odt [Zofran Odt] 4 mg PO Q8HR PRN #14 tab 06/23/23 [Rx] Sennosides-Docusate Sodium [Senokot-S] 1 tab PO BID #60 tablet 06/23/23 [Rx] Follow up Appointment(s)/Referral(s): Deyvi Mann MD [Medical Doctor] - 2 Weeks Activity/Diet/Wound Care/Special Instructions: May bear weight as tolerated with walker. May shower 48 hours postop. Keep dressing intact until f/u visit. Report any problems to our office. [phone]. Discharge Disposition: HOME WITH HOME HEALTH SERVICES
[2023-06-24 10:29] LABS: Basophils # (A) 0.02 X 10*3/uL (0.00-0.10); Basophils % (A) 0.1 %; Eosinophils # (A) 0.01 X 10*3/uL (0.04-0.35); Eosinophils % (A) 0.1 %; HCT 34.6 % (37.2-46.3); HGB 11.4 g/dL (12.0-15.0); Lymphocytes # (A) 1.21 X 10*3/uL (0.90-5.00); Lymphocytes % (A) 8.5 %; MCH 31.1 pg (27.0-32.0); MCHC 32.9 g/dL (32.0-37.0); MCV 94.3 FL (80.0-97.0); Mean Platelet Volume 10.5 FL (9.5-12.2); Monocytes # (A) 0.96 X 10*3/uL (0.20-1.00); Monocytes % (A) 6.7 %; NRBC Per 100 WBC 0 X 10*3/uL (0.00-0.01); Neutrophils # (A) 12.02 X 10*3/uL (1.80-7.70); Neutrophils % (A) 84.2 %; Platelet Count 240 X 10*3/uL (140-440); RBC 3.67 X 10*6/uL (4.10-5.20); RDW 12.1 % (11.5-14.5); WBC 14.27 X 10*3/uL (4.50-10.00)
[2023-06-24 10:47] LABS: ALT 10 U/L (8-44); AST 20 U/L (13-35); Albumin 3.2 g/dL (3.8-4.9); Albumin/Globulin Ratio 1.68 Ratio (1.60-3.17); Alkaline Phosphatase 80 U/L (41-126); Blood Urea Nitrogen 7.8 mg/dL (9.0-27.0); Calcium 9.8 mg/dL (8.7-10.3); Carbon Dioxide 26.6 mmol/L (21.6-31.8); Chloride 100 mmol/L (96-109); Globulin 1.9 g/dL (1.6-3.3); Glucose 124 mg/dL (70-110); Potassium 4.4 mmol/L (3.5-5.5); Sodium 138 mmol/L (135-145); Total Bilirubin 0.4 mg/dL (0.3-1.2); Total Protein 5.1 g/dL (6.2-8.2)
--- NOTE | 2023-06-24 13:04 | P.CONS ---
History of Present Illness - Reason for Consult Consult date: 06/23/23 - History of Present Illness Rabia Zheng, is a 78-year-old female who was admitted to [facility] by Dr. Mann, and underwent Left direct anterior total hip arthroplasty on 06/23/2023, patient was admitted to surgical floor, consultation was requested for medical management while hospitalized. Primary care physician is Dr. Guajardo. Past medical history is significant for history of hypertension, history of hyperlipidemia, history of osteoarthritis, history of hypothyroidism, and history of breast cancer, with history of lumpectomy. On review of systems patient is alert and oriented 3 in no apparent distress, there is no fever or chills no headache or dizziness no chest pain no shortness of breath no cough no nausea or vomiting no abdominal pain no diarrhea no blood in the stools no burning with urination no frequency or urgency and no hematuria, there is no weakness or numbness in any of the extremities, no change in vision speech or gait. Past Medical History Past Medical History: Cancer, Hypertension, Osteoarthritis (OA), Thyroid Disorder Additional Past Medical History / Comment(s): Hx left breast cancer with lumpec da and radiation, thyroid nodules, Hashimotos. History of Any Multi-Drug Resistant Organisms: None Reported Past Surgical History: Breast Surgery, Hysterectomy, Joint Replacement, Orthopedic Surgery Additional Past Surgical History / Comment(s): Right knee replacement, left breast lumpectomy, upper eyelid lift, bilateral hand cysts removed, left shoulder surgery. Past Anesthesia/Blood Transfusion Reactions: No Reported Reaction Past Psychological History: No Psychological Hx Reported Smoking Status: Former smoker Past Alcohol Use History: Occasional Additional Past Alcohol Use History / Comment(s): Smoked for a few years off and on in 20's. Past Drug Use History: None Reported - Past Family History Sister(s) Family Medical History: Cancer Additional Family Medical History / Comment(s): Breast cancer. Son(s) Family Medical History: Cancer Additional Family Medical History / Comment(s): Prostate cancer. Father Family Medical History: Cancer Medications and Allergies Home Medications Medication Instructions Recorded Confirmed Type atenoloL [Tenormin] 50 mg PO QAM 04/16/21 06/23/23 History Escitalopram [Lexapro] 5 mg PO QAM 06/21/23 06/23/23 History traMADol HCL 50 mg PO DIRECTED PRN 06/21/23 06/23/23 History Aspirin [Adult Low Dose Aspirin EC] 81 mg PO BID #1 tab 06/23/23 Rx Diclofenac Sodium [Voltaren] 75 mg PO BID #60 tab 06/23/23 Rx HYDROcodone/APAP 5-325MG [Hertel 1 - 2 tab PO Q6HR PRN #32 tab 06/23/23 Rx 5-325] Omeprazole 20 mg PO DAILY #30 tab 06/23/23 Rx Ondansetron Odt [Zofran Odt] 4 mg PO Q8HR PRN #14 tab 06/23/23 Rx Sennosides-Docusate Sodium 1 tab PO BID #60 tablet 06/23/23 Rx [Senokot-S] Allergies Allergy/AdvReac Type Severity Reaction Status Date / Time No Known Allergies Allergy Verified 06/23/23 05:59 Physical Exam Vitals: Vital Signs Temp Pulse Pulse Resp BP BP Pulse Ox 06/23/23 12:52 54 L 16 101/58 97 06/23/23 12:22 52 L 12 102/57 97 06/23/23 11:52 50 L 17 111/57 95 06/23/23 11:22 56 L 16 120/58 95 06/23/23 10:52 51 L 16 103/52 99 06/23/23 10:37 51 L 17 104/55 99 06/23/23 10:22 52 L 17 104/55 99 06/23/23 10:07 55 L 14 133/62 98 06/23/23 09:52 63 16 135/63 94 L 06/23/23 09:37 97 F L 74 16 166/73 99 06/23/23 06:50 63 14 154/77 98 06/23/23 06:14 97.4 F L 61 14 157/80 98 Intake and Output 06/23/23 06/23/23 06/23/23 06:59 14:59 22:59 Intake Total 300 1750 Output Total 100 Balance 300 1650 Intake: IV 300 1750 Output: Estimated Blood Loss 100 Other: Weight 78.5 kg In general patient is alert and oriented x 3 in no distress HEENT head normocephalic and atraumatic Neck is supple no JVD no goiter no lymphadenopathy no carotid bruit Chest examination is clear to auscultation no crackles no wheezing Cardiac exam reveals regular heart sounds S1 and S2 no gallops no murmurs Abdomen is soft nontender no organomegaly with normal bowel sounds Extremity exam reveals no edema no cyanosis or clubbing Neurological examination reveals no gross focal deficits Results CBC & Chem 7: 06/24/23 05:45 06/24/23 05:45 Assessment and Plan Plan: Osteoarthritis status post left total hip arthroplasty on 06/23/[address] Mann Pain management and DVT prophylaxis as per orthopedic protocol Underlying history of hypertension Underlying history of hyperlipidemia Underlying history of osteoarthritis Underlying history of hypothyroidism Previous history of breast cancer At this time patient was seen and examined Home medications reviewed and reordered Will follow during this admission for medical management
--- NOTE | 2023-06-24 13:06 | P.PN ---
Subjective Progress Note Date: 06/24/23 Rabia Zheng, is a 78-year-old female who was admitted to [facility] by Dr. Mann, and underwent Left direct anterior total hip arthroplasty on 06/23/2023, patient was admitted to surgical floor, consultation was requested for medical management while hospitalized. Primary care physician is Dr. Guajardo. Past medical history is significant for history of hypertension, history of hyperlipidemia, history of osteoarthritis, history of hypothyroidism, and history of breast cancer, with history of lumpectomy. On review of systems patient is alert and oriented 3 in no apparent distress, there is no fever or chills no headache or dizziness no chest pain no shortness of breath no cough no nausea or vomiting no abdominal pain no diarrhea no blood in the stools no burning with urination no frequency or urgency and no hematuria, there is no weakness or numbness in any of the extremities, no change in vision speech or gait. On 06/24/2023, patient was seen and examined on the medical floor, she is alert and oriented 3 in no apparent distress, she is complaining of mild pain in the left hip area otherwise she denies any complaints, there is no fever or chills no headache or dizziness no chest pain no shortness of breath no cough no nausea or vomiting no abdominal pain no diarrhea and no urinary symptoms. Patient was evaluated again today by orthopedic surgery and was cleared for discharge to home. Patient is requesting a [employer] paperwork and I provided her with that. She will follow-up with Dr. Guajardo within 1 week Objective - Vital Signs Vital signs: Vital Signs Temp 97.8 F 06/24/23 06:56 Pulse 65 06/24/23 06:56 Resp 17 06/24/23 06:56 BP 125/74 06/24/23 06:56 Pulse Ox 94 L 06/24/23 06:56 FiO2 Intake & Output 06/23/23 06/24/23 06/24/23 18:59 06:59 18:59 Intake Total 1750 Output Total 100 1080 Balance 1650 -1080 Weight 78.5 kg Intake: IV 1750 Output: Urine 1080 Estimated Blood Loss 100 Other: # Voids 1 3 1 - Exam In general patient is alert and oriented x 3 in no distress HEENT head normocephalic and atraumatic Neck is supple no JVD no goiter no lymphadenopathy no carotid bruit Chest examination is clear to auscultation no crackles no wheezing Cardiac exam reveals regular heart sounds S1 and S2 no gallops no murmurs Abdomen is soft nontender no organomegaly with normal bowel sounds Extremity exam reveals no edema no cyanosis or clubbing Neurological examination reveals no gross focal deficits - Labs CBC & Chem 7: 06/24/23 05:45 06/24/23 05:45 Labs: Abnormal Lab Results - Last 24 Hours (Table) 06/24/23 06/24/23 Range/Units 05:45 05:45 WBC 14.27 H (4.50-10.00) X 10*3/uL RBC 3.67 L (4.10-5.20) X 10*6/uL Hgb 11.4 L (12.0-15.0) g/dL Hct 34.6 L (37.2-46.3) % Immature Gran # 0.05 H (0.00-0.04) X 10*3/uL Neutrophils # 12.02 H (1.80-7.70) X 10*3/uL Eosinophils # 0.01 L (0.04-0.35) X 10*3/uL BUN 7.8 L (9.0-27.0) mg/dL Glucose 124 H (70-110) mg/dL Total Protein 5.1 L (6.2-8.2) g/dL Albumin 3.2 L (3.8-4.9) g/dL Assessment and Plan Plan: Osteoarthritis status post left total hip arthroplasty on 06/23/[address] Mann Pain management and DVT prophylaxis as per orthopedic protocol Underlying history of hypertension Underlying history of hyperlipidemia Underlying history of osteoarthritis Underlying history of hypothyroidism Previous history of breast cancer At this time patient was seen and examined Home medications reviewed and reordered Will follow during this admission for medical management
== END 2023-06-24 13:53 | disposition home health service (06) ==
LOC: OR 05:37 → EDSTATUS 07:30 → 4SSUR 09:37 → OR 06-24 13:53
PROVIDERS: ATTEND Orthopaedic Surgery
DX: M16.12 Unilateral primary osteoarthritis, left hip (principal); I10 Essential (primary) hypertension; E78.5 Hyperlipidemia, unspecified; E03.9 Hypothyroidism, unspecified; Z85.3 Personal history of malignant neoplasm of breast; Z90.710 Acquired absence of both cervix and uterus; Z96.651 Presence of right artificial knee joint; Z87.891 Personal history of nicotine dependence; Z80.3 Family history of malignant neoplasm of breast; Z79.82 Long term (current) use of aspirin; Z79.899 Other long term (current) drug therapy
CPT/HCPCS: 97162; 64415; 80053; 85025; 73501; 27130; C1776; J2250; J1100; J0690; J2405; J3490; J1885; J1170

== ENCOUNTER → 2023-09-11 | Outpatient (CLI) | payer MEDICARE, BC ==
--- NOTE | 2023-09-12 18:50 | MM ---
Reason for Exam: Screening (asymptomatic). Last mammogram was performed 1 year(s) and 1 month(s) ago. Patient History: Menarche at age 13. First Full-Term at age 20. Left ovary removed at age 52. Right ovary removed at age 52. Hysterectomy at age 52. Breast cancer, left, age 64. 2010, Lumpectomy on the Left side. 2010, Radiation Therapy on the left side. Sister had breast cancer, age 40. Prior Study Comparison: 07/02/2018 Bilateral Screening Mammogram, [facility]. 03/24/2021 Bilateral Screening Mammogram, [facility]. 08/24/2022 Bilateral MG 3D screening mammo w/cad, [facility]. Tissue Density: There are scattered areas of fibroglandular density. Findings: Analyzed By CAD. Postsurgical and posttreatment changes left breast. Unchanged global asymmetry right upper outer quadrant. There is no suspicious group of microcalcifications or new suspicious mass in either breast. Overall Assessment: Benign, BI-RAD 2 Management: Screening Mammogram of both breasts in 1 year. . Patient should continue monthly self-breast exams. A clinical breast exam by your physician is recommended on an annual basis. This exam should not preclude additional follow-up of suspicious palpable abnormalities. Electronically signed and approved by: Cheyenne Garcia M.D. Radiologist
== END | disposition home or self-care (01) ==
LOC: RADMAMWWP 08:39
PROVIDERS: ATTEND Family Medicine
DX: Z12.31 Encounter for screening mammogram for malignant neoplasm of breast (principal); Z80.3 Family history of malignant neoplasm of breast
CPT/HCPCS: 77063; 77067